=== PATIENT | female | born 1930 | race Caucasian/White ===

== ENCOUNTER 2016-10-22 08:43 | Emergency (ER) | payer MEDICARE, BC ==
[~2016-10-22 08:43] MED LIST: ALLOPURINOL300 MG PO; AMLODIPINE BESYL5 MG PO; ASPIRIN81 MG PO; AUGMENTIN PO; BUMEX1 MG PO; CEFACLOR250 MG PO; CENTRUM PO; CENTRUM SILVER PO; COMBIVENT U/D3 ML INH; CRESTOR5 MG PO; DETROL LA PO; DIOVAN HCT 160/1 TAB PO; LEVOTHYROXINE50 MCG PO; LISINOPRIL10 MG PO; LOPRESSOR PO; LYRICA PO; LYRICA75 MG PO; METOPROLOL TART25 MG PO; MUCUS RELIEF600 M1 PO; POTASSIUM CL 225 ME1 PO; SPIRONOLACTONE10 GM PO; XARELTO15 MG PO; ZAROXYLYN PO; ZYLOPRIM PO
[2016-10-22] MEDS ORDERED: ACID CONTROLLER20 MG PO (09:04)
[2016-10-22] MEDS ORDERED: LIPITOR20 MG PO (09:05)
[2016-10-22 09:42] LABS: URINE APPEARANCE SL CLOUDY; URINE BILIRUBIN NEG (NEG); URINE BLOOD TRACE-LYSED (NEG); URINE COLOR YELLOW; URINE GLUCOSE NEG (NORM); URINE KETONE NEG (NEG); URINE LEUKOCYTE ESTERASE 2+ (NEG); URINE NITRATE POS (NEG); URINE PH 6.5 (5-8); URINE PROTEIN NEG (NEG); URINE UROBILINOGEN 0.2 MG/DL (NORM)
[2016-10-22 09:43] LABS: MICRO INDICATED? YES; URINE SOURCE CLEAN CATCH
[2016-10-22 09:48] LABS: URINE BACTERIA 2+ (NEG); URINE RBC 0-2 /[HPF] (0-2); URINE SQUAMOUS EPITHELIAL CELL OCCAS /[HPF]
== END 2016-10-22 10:03 | disposition home or self-care (01) ==
LOC: SED 08:43
PROVIDERS: Emergency Medicine
DX: N39.0 Urinary tract infection, site not specified (principal); I10 Essential (primary) hypertension; Z79.899 Other long term (current) drug therapy; Z91.013 Allergy to seafood; Z88.6 Allergy status to analgesic agent; Z88.8 Allergy status to other drugs, medicaments and biological substances
CPT/HCPCS: 81003; 99283

== ENCOUNTER → 2016-10-25 | Outpatient (CLI) | payer MEDICARE, BC ==
[~2016-10-25] MED LIST changes: +ACID CONTROLLER20 MG PO; +ACID REDUCER20 MG PO; +ALDACTONE PO; +ASPIRIN81 M2 PO; +CENTRUM SILVER1 EAC2 PO; +CRESTOR PO; +GUAIFENESIN LA600 M1 PO; +IPRATR-ALBUTEROL3 ML NEB; +KCL PO; +LIPITOR20 MG PO; +LISINOPRIL PO; +NITROLINGUAL12 G1 SL; +PATIENT'S PHARMACY; +PREDNISONE PO
[2016-10-25 11:50] LABS: ALBUMIN SERUM 4.1 g/dL (3.5-5.0); BILIRUBIN,TOTAL 0.8 mg/dL (0.2-2.0); BUN/CREATININE RATIO 26.92; CALCIUM SERUM 9.1 mg/dL (8.4-10.2); CREATININE SERUM 1.3 mg/dL (0.6-1.4); GLOM FILT RATE Estimated 37.9 mL/min (>60); POTASSIUM 4.6 mmol/L (3.5-5.1); PROTEIN TOTAL SERUM 6.2 g/dL (6.0-8.3); URIC ACID 5.3 mg/dL (2.6-7.2)
[2016-10-27 23:26] LABS: CALCIUM (PTHINTACT) 9.6 mg/dL (8.6-10.4)
== END | disposition home or self-care (01) ==
LOC: CLAB 10:15
PROVIDERS: Internal Medicine Nephrology
DX: N18.3 Chronic kidney disease, stage 3 (moderate) (principal); N25.81 Secondary hyperparathyroidism of renal origin
CPT/HCPCS: 36415; 80053; 82310; 83970; 84100; 84550

== ENCOUNTER 2016-11-01 11:30 | Inpatient (IN) | payer MEDICARE, BC ==
[~2016-11-01] VITALS: Ht 162.6 cm; Wt 117.0 kg
--- NOTE | ~2016-11-01 | CO ---
Unit #: [id number] #: [id number] Patient: HEATH BAH [id number] [address] [place], [place] [address] [id number] MR#: [id number] NAME: HEATH BAH ROOM: 572 Age: 85 Sex: F Admission Date: 11/01/2016 : 1930 Attending Physician: Yesy Nugent M.D. Primary Care Physician: Latricia ePttit M.D. Consultation Date: 11/02/2016 CONSULTATION REPORT REASON FOR CONSULT Renal insufficiency. HISTORY Thank you very much for asking us to see this patient in consultation. Ms. Bah is an 85-year-old female with history of chronic kidney disease stage 3 with baseline creatinine 1.3 to 1.5 range who was in the office yesterday with increasing shortness of breath, at which time I sent her over to the emergency room where she was admitted with increased shortness of breath. Patient was in the emergency room on October 25 at [facility] with some mild increased shortness of breath and some back pain on the left side and was diagnosed with a UTI and was given nitrofurantoin. She presented to the office yesterday with worsening shortness of breath over the last week, cough (nonproductive), questionable fevers. No chest pain. No nausea, vomiting or diarrhea. No urinary symptoms. Some mild increased swelling. Patient was noted to have a creatinine of 1.7 upon admission. HER PAST MEDICAL HISTORY History of atherosclerotic coronary artery disease with valvular heart disease status post mitral valve replacement and tricuspid valve repair, history of atrial fib, history of COPD, history of pulmonary hypertension, history of hypertension, history of hyperlipidemia, history of hypothyroidism, history of chronic kidney disease stage 3, history of obesity, history of carotid artery disease. MEDICATIONS Her medications include Solu-Medrol, was started here 80 mg IV q.12. She was on Bumex 1 mg a day, and I increased her to 1 mg twice a day if she was discharged from the ER, but here she was started on 1 mg IV q.12. She is on Lyrica 150 mg a night, Lopressor 25 mg b.i.d., several inhalers, Tylenol, Lipitor now 20 mg a day. I think she was on Crestor at home. Xarelto 15 mg a day, KCl 20 mEq a day. She is on aspirin 81 mg a day, Pepcid 20 mg a day, Allopurinol 300 mg a day, Protonix now here also 40 mg a day, Synthroid 0.05 mg a day. She was on Zestril 10 mg a day and spironolactone at home, and that was then DC'd. HER REVIEW OF SYSTEMS As mentioned in the HPI. Otherwise, negative. HER SOCIAL HISTORY Previous smoker. None now. No alcohol. ALLERGIES Unit #: [id number] #: [id number] Patient: HEATH BAH Her allergies include indomethacin, piroxicam and shellfish. FAMILY HISTORY Her family history is noncontributory. HER PHYSICAL EXAM GENERAL: She is alert and oriented. VITAL SIGNS: Temperature is 98.6, pulse 58 to 78, blood pressure 109 to 151/45 to 82. HER HEENT: She is normocephalic, atraumatic. Pupils are equal, round and reactive to light. Extraocular muscles are intact. Hearing appears to be normal. Mouth is clear, no erythema, no exudate. NECK: Supple. No JVD. CARDIAC: She is without a rub. She has about a 1 to 2/6 systolic ejection murmur. LUNGS: Her lungs actually sound fairly clear today. Yesterday I had heard rhonchi in her right base. HER ABDOMEN: Overweight. Bowel sounds positive. Nontender, soft. EXTREMITIES: She does have some trace lower extremity swelling. HER : Deferred. SKIN: No acute rashes. NEURO: Alert and oriented. Able to move all extremities. DIAGNOSTIC STUDIES LABORATORY DATA: She has sodium today 134, potassium 4.8, chloride is 100, bicarb is 24, BUN of 43, creatinine 1.7, glucose 245, calcium is 9.6, magnesium is 2.1, albumin is 3.9. TSH 0.72. BNP is only 110. Her hemoglobin is 10.8, white count 9,200 with platelets 215,000. Her urinalysis shows specific gravity 1.007, nitrite negative now, no protein. She has 0-2 RBCs, 2-5 WBCs, no bacteria now. IMAGING: Chest x-ray showed cardiomegaly, probable pulmonary edema. ASSESSMENT AND PLAN 1. Chronic kidney disease stage 3 with now some mild acute kidney injury with creatinine up to 1.7. I agree with holding her Aldactone and her Zestril and agree with IV Bumex. Would continue for now. Echo of the heart is pending. Unsure if her shortness of breath is related to heart failure with the BNP only 110 but clinically she was suggestive of that. Certainly she could have some sort of underlying lung problem with COPD, as well, and she is on some IV steroids. Will check labs in the morning. Will check a renal ultrasound just to rule out any acute pathology from the renal standpoint. Certainly check full set of labs in the morning. Will continue to follow. 2. Shortness of breath. Workup and treatment per primary and cardiology. Questionable congestive heart failure versus lung disease versus other. 3. History of hypertension. Again, off STEVE inhibitors for now until renal function improves. Continue to hold ACEs and ARBs for now. 4. Cardiac disease. Thank you very much. Dictated by.Marilyn Denis M.D. Unit #: [id number] #: [id number] Patient: HEATH BAH RAMESH/pravin TD: 11/03/2016 09:12 JOB #: [id number] CONSULTATION REPORT Page 1 of 1 X Narciso Denis MD CONSULTATION REPORT
--- NOTE | ~2016-11-01 | US77 ---
[facility] A Service of [facility] RADIOLOGY TEXT RESULTS PATIENT: HEATH BAH LOCATION: [facility] 572-01 : 32 UNIT #: [id number] AGE: [address]: Yesy Nugent MD SEX: F ORDER DR: [id number] [facility] [address] [place], [place] [address] [id number] I MR#: [id number] Acc #: [id number] NAME: HEATH BAH : 1930 SEX: F STUDY DATE/TIME: 11/02/2016 16:05 UNIT: [facility] ROOM: [facility] STUDY DESCRIPTION: US Kidney Bilateral Complete Attending Physician: Yesy Nugent M.D. Ordering Physician: Armando Denis M.D. Primary Care Physician: Latricia Pettit M.D. MEDICAL IMAGING REPORT This report is preliminary unless electronic signature is present EXAM Renal sonogram. CLINICAL HISTORY 85-year-old female with stage 3 chronic kidney disease. Acute on chronic kidney injury. FINDINGS Real-time examination demonstrates the kidneys to be of normal size with the right kidney measuring 12.1 cm in length, the left kidney 12 cm in length. No hydronephrosis. Central echo complex appears normal. There is mild thinning of the renal cortex of the right kidney, particularly in the lower pole. Bladder unremarkable. IMPRESSION Mild right renal cortical atrophy, otherwise normal bilateral renal sonogram. Dictated by... Grey Cortés M.D. THIS IS AN ELECTRONICALLY VERIFIED REPORT Grey Cortés M.D. at 11/03/2016 6:54 PM VALERIE/anson TD: 11/02/2016 22:27 JOB #: [id number] MEDICAL IMAGING REPORT Page 1 of 1 COPY
--- NOTE | ~2016-11-01 | CO ---
Unit #: [id number] #: [id number] Patient: HEATH BAH [id number] [address] [place], [place] [address] [id number] I MR#: [id number] NAME: HEATH BAH ROOM: 572 Age: 85 Sex: F Admission Date: 11/01/2016 : 1930 Attending Physician: Yesy Nugent M.D. Primary Care Physician: Latricia Pettit M.D. Consultation Date: 11/01/2016 CONSULTATION REPORT REASON FOR CONSULT CHF. HISTORY OF PRESENT ILLNESS This is a pleasant 85-year-old, female, who typically is followed by Dr. Cathy Almanza. She has a past medical history of coronary artery disease with stent placement to the left circ, mitral valve replacement with a porcine mitral valve and tricuspid repair at [facility] in 2009, hypertension, hyperlipidemia, paroxysmal atrial fibrillation, on chronic anticoagulation with Xarelto, hypothyroidism, CKD, CARMEN, bilateral carotid stenosis, bronchiectasis and reformed tobacco use. The patient tells me she has been in her typical state of health, but noticed on Sunday, she started not feeling very well with some shortness of breath. She states she was doing her breathing treatments at home, but they just were not helping much. She denies any fever, but does report some occasional chills as well as occasional productive cough. Denies any recent sick contacts. She denies any complaints of chest pain or angina, does report some orthopnea, but denies any PND. She does tell me she has been eating a lot of frozen foods over the last week, but no increase in her fluid intake. The patient also reports she has recently been treated for UTI approximately 2 weeks ago and has finished her antibiotic regimen. She denies any complaints of palpitations. The patient states she just dealt with her breathing issue as she knew she had an appointment with Dr. Denis the following day. She went in to see him. He felt like she needed to come to the emergency room for further evaluation. Therefore, the patient presented for the above. In the ER, her blood pressure was in the 140s/50s, oxygen saturation was 92%, pulse was 77. Chest x-ray was performed, which showed mild cardiomegaly and was suggestive of edema. Her BNP was mildly elevated at 110. She was given 1 mg of Bumex in the emergency department. She also had an EKG performed, which showed normal sinus rhythm, rate of 73 beats per minute. No acute ischemic change. QTc interval of 458 msec. Point of care troponin was less than 0.05. It is also notable that on admission, her creatinine was noted to be elevated at 1.7 and a potassium of 5.0. At present, she is resting in bed. She does appear slightly labored with conversation, but is in no acute distress. We were evaluating for the above reasons. PAST MEDICAL HISTORY 1. Coronary artery disease with a history of stent to the left circumflex. 2. Left heart catheterization in 10/2013 showed the left circumflex was patent. No other coronary artery disease was noted. Normal LVEF of 65%. 3. 2D echocardiogram in 2014 showed LVEF of 55% to 60%, grade 2 diastolic Unit #: [id number] #: [id number] Patient: HEATH BAH R dysfunction, severe mitral calcification, mild MR, MVR tissue with peak gradient of 11/3, an area of 2.3 cm2, moderate TR and RVSP of 37 mmHg. 4. Moderate to severe pulmonary hypertension. 5. Hypertension. 6. Hyperlipidemia. 7. Hypothyroidism. 8. Chronic kidney disease, followed by Dr. Denis. 9. Obstructive sleep apnea, on CPAP. 10. Peripheral arterial disease with a history of bilateral carotid artery stenosis. 11. Paroxysmal atrial fibrillation, on chronic anticoagulation with Xarelto. 12. COPD. 13. Chronic respiratory failure, wears oxygen at night. PAST SURGICAL HISTORY 1. Cardiac cath. 2. Cardiac stent placement to the left circumflex. 3. Mitral valve replacement with a porcine mitral valve and tricuspid repair in [address] [facility]. 4. Hysterectomy. 5. Right breast lumpectomy. 6. Oophorectomy. 7. Hemorrhoidectomy. 8. Back surgery. 9. Carpal tunnel release. SOCIAL HISTORY The patient lives with her . She is a reformed tobacco user, quit about 20 years ago. She reports occasional alcohol. Denies illicit drug use. ALLERGIES Shellfish, indomethacin, piroxicam, and clotrimazole. MEDICATIONS Bumex 1 mg p.o. b.i.d., allopurinol 300 mg p.o. daily, Lopressor 25 mg p.o. b.i.d., famotidine 20 mg p.o. daily, levothyroxine 50 mcg p.o. daily, aspirin 81 mg p.o. daily, multivitamin one tab p.o. daily, Klor-Con 20 mEq p.o. daily, Lyrica 150 mg p.o. q.h.s., Xarelto 15 mg p.o. q.h.s., Zestril 10 mg q.h.s., Lipitor 20 mg p.o. daily, nitroglycerin sublingual as needed, Albuterol/Atrovent mini nebs as needed, cefaclor 250 mg p.o. q.8 hours, guaifenesin 600 mg p.o. b.i.d., Aldactone 12.5 mg p.o. daily. REVIEW OF SYSTEMS Complete and is negative except for as stated above in the HPI. DIAGNOSTIC STUDIES LABORATORY RESULTS: Troponin less than 0.05. Hemoglobin 10.8, hematocrit 31.3, WBCs 10.8. Comp panel; sodium was 133, BUN 39, creatinine 1.7, BNP is 110. Urinalysis is notable for trace leuk esterase. IMAGING STUDIES: Chest x-ray with mild cardiomegaly and interstitial change suggestive of ischemia. EKG shows normal sinus rhythm, rate of 73 beats per minute. No acute ischemic change. QTc interval of 458 msec. Unit #: [id number] #: [id number] Patient: HEATH BAH PHYSICAL EXAMINATION GENERAL: This is a pleasant, obese, female, in no acute distress. VITAL SIGNS: Temperature 98, respiratory rate 18 to 20, pulse 75, blood pressure 110/82 to 141/54, BMI is 45. HEENT: Head is atraumatic and normocephalic. Mucous membranes are moist. NECK: Supple. Trachea is midline. No lymphadenopathy. No thyromegaly. Carotid bruits auscultated in the right carotid artery. CARDIOVASCULAR: S1, S2. No murmurs, gallops, or rubs. Regular rate and rhythm. LUNGS: Clear to auscultation, diminished in the bases. ABDOMEN: Obese soft, nontender, nondistended. Bowel sounds are present. EXTREMITIES: 1+ edema as noted. NEUROLOGIC: The patient is awake, alert, and oriented. She follows commands. She moves extremities equally. IMPRESSION 1. Acute on chronic diastolic heart failure. 2. Chronic obstructive pulmonary disease exacerbation. 3. Chronic respiratory failure, wears oxygen at night. 4. Obstructive sleep apnea, compliant with continuous positive airway pressure. 5. Paroxysmal atrial fibrillation, currently rates are controlled on chronic anticoagulation with Xarelto. 6. Valvular heart disease, status post MVR porcine valve and tricuspid repair at [facility] in 2009. 7. Pulmonary hypertension. 8. Hyperlipidemia. 9. Hypothyroidism. 10. Chronic kidney disease, followed by Dr. Denis. Admitting creatinine is 2.8. 11. Chronic anemia. 12. Morbid obesity with BMI of 45. We have been asked to see the patient secondary to congestive heart failure. This patient typically follows with Dr. Cathy Almanza and appears she is in acute on chronic diastolic heart failure. The patient is noted to be also in acute on chronic kidney disease with a creatinine currently of 2.8. At this time, we will continue with fluid restriction and 2 g sodium diet. Strict Is and Os and daily weights. Her initial troponin has been negative, we will trend that out and repeat EKG in the a.m. we will check BMP, CBC, magnesium and TSH in the a.m. At this time due to her altered kidney function, we will discontinue her Aldactone and her STEVE inhibitor and she will be continued on 1 mg of IV Bumex daily for fluid removal with close monitoring of her renal function. We will also ask Dr. Denis to see her in consultation. Dictated by... Margot Diaz A.P.R.N. LMW/modl TD: 11/02/2016 23:27 JOB #: [id number] Unit #: [id number] #: [id number] Patient: POLI BAHALEENA Albarran CONSULTATION REPORT Page 1 of 1 X Margot Diaz APRN CONSULTATION REPORT
--- NOTE | ~2016-11-01 | EKG ---
PATIENT: HEATH BAH UNIT #: [id number] Ventricular Rate: 62 BPM Atrial Rate: 62 BPM P-R Interval: 162 ms QRS Duration: 90 ms Q-T Interval: 460 ms QTC Calculation(Bezet): 466 ms P [place]: 98 degrees Calculated R [place]: 68 degrees Calculated T [place]: 96 degrees Diagnosis Line: Normal sinus rhythm with sinus arrhythmia Diagnosis Line: Normal ECG Diagnosis Line: When compared with ECG of 01-NOV-2016 12:11, Diagnosis Line: No significant change was found Diagnosis Line: Confirmed by GRACE JOHNSON MD ([id number]) on Diagnosis Line: 11/03/2016 4:35:13 PM INTERPRETING MD: ZENAIDA
--- NOTE | ~2016-11-01 | DS ---
Unit #: [id number] #: [id number] Patient: HEATH BAH [id number] [address] [address] [id number] I MR#: [id number] NAME: HEATH BAH ROOM: 572 Age: 85 Sex: F Admission Date: 11/01/2016 : 1930 Discharge Date: Attending Physician: Yesy Nugent M.D. Primary Care Physician: Latricia Pettit M.D. DISCHARGE SUMMARY DISCHARGE DIAGNOSES 1. Acute on chronic diastolic heart failure. 2. Acute kidney injury. 3. Chronic kidney disease, stage 3. 4. Atrial fibrillation, paroxysmal, on Xarelto. 5. Coronary artery disease. 6. History of porcine mitral valve replacement and tricuspid replacement in 2009. 7. Chronic obstructive pulmonary disease with exacerbation. 8. Bronchiectasis. 9. Pulmonary hypertension. 10. Morbid obesity. 11. Moderate to severe pulmonary hypertension. 12. Hypertension. 13. Hyperlipidemia. 14. Hypothyroidism. 15. Obstructive sleep apnea, on CPAP. 16. Chronic hypoxic respiratory failure. 17. Peripheral arterial disease with bilateral carotid artery stenosis. CONSULTATION 1. Dr. Denis. 2. Dr. Arrington. PROCEDURES None. LAB DATA BMI of 44, BNP 156, sodium 134, potassium 4.5, creatinine 1.5, WBC 14.4, hemoglobin 10.4, platelets 224. Ultrasound of the kidneys - mild right renal cortical atrophy, otherwise normal. TSH 0.72. ALLERGIES Indomethacin, piroxicam, clotrimazole. DISCHARGE MEDICATIONS 1. Duo-Nebs nebulizer inhalation 4x daily p.r.n. shortness of breath. 2. Xarelto 15 mg at bedtime. 3. Lyrica 150 p.o. daily. 4. Lopressor 25 p.o. b.i.d. Unit #: [id number] #: [id number] Patient: HEATH BAH 5. Bumex 1 mg p.o. b.i.d. 6. Guaifenesin 600 p.o. b.i.d. 7. Lipitor 20 daily. 8. Pepcid 20 mg p.o. daily. 9. Allopurinol 300 daily. 10. Multivitamin, one tablet daily. 11. Aspirin 81 daily. 12. Levothyroxine 50 mcg p.o. daily. 13. Nitroglycerin sublingual p.r.n. chest pain. HOSPITALIZATION COURSE This is 85-year-old with history of COPD, chronic hypoxic respiratory failure, admitted because of shortness of breath. 1. Acute on chronic diastolic heart failure. Patient received IV Bumex, currently compensated. Lungs clear. She does have pedal edema. Continue p.o. Bumex. 2. Acute kidney injury with chronic kidney disease stage 3 and mildly elevated creatinine on admission, currently stable. Likely from CHF. 3. COPD with exacerbation, started on IV Solu-Medrol. Currently, no wheezing. Patient will continue with Duo-Nebs and prednisone tapering dose. 4. Paroxysmal atrial fibrillation, on Xarelto, rate controlled. 5. Chronic anemia, likely iron deficiency. 6. Morbid obesity. The patient will be discharged home. Follow with primary physician in one week time. Follow with cardiology in four weeks time. Follow with Dr. Denis in one to two weeks time. Dr. Denis and Dr. Arrington is okay for the patient to be discharged. Echocardiogram shows ejection fraction 55-60%. Moderately dilated left atrium, moderately enlarged right atrium, moderately dilated right ventricle and mild to moderate pulmonary valvular regurgitation. Right ventricular systolic pressure is 40. Small pericardial effusion present. Discharge time taken is 31 minutes. Dictated by... Velma Hall TD: 11/03/2016 12:35 JOB #: [id number] DISCHARGE SUMMARY Page 1 of 1 X Yesy Nugent MD X DISCHARGE SUMMARY
--- NOTE | ~2016-11-01 | HP ---
Unit #: [id number] #: [id number] Patient: HEATH BAH [id number] [address] [address] [id number] MR#: [id number] NAME: HEATH BAH ROOM: 92155 Age: 85 Sex: F Admission Date: 11/01/2016 : 1930 Attending Physician: Concepcion Parisi M.D. Primary Care Physician: Latricia Pettit M.D. HISTORY AND PHYSICAL CHIEF COMPLAINT Short of air. HISTORY OF PRESENT ILLNESS The patient is an 85-year-old female with past medical history of CHF, COPD, chronic respiratory failure, paroxysmal atrial fibrillation, chronic anticoagulation, valvular heart disease, pulmonary hypertension, hypertension, hyperlipidemia, hypothyroidism, chronic kidney disease, chronic anemia, peripheral arterial disease, obstructive sleep apnea who presented to the emergency department from the plating foreman[facility] office for evaluation of the above. The patient states that she has not been feeling well since October 30, 2016. She states that she has had increasing shortness of breath and occasionally productive cough. She reports chills but no documented fever. She denies any chest pain. She has two-pillow orthopnea that is not a new problem. She denies any paroxysmal nocturnal dyspnea. She does have dyspnea on exertion when walking across the room. She states that she has gained about 2 pounds over the past couple of days. She states that she has been taking her medications as prescribed. In the emergency department, initial pulse and blood pressure were 77 and 141 over 54 respectively. Oxygen saturation was 92% on room air. Chest x-ray shows mild cardiomegaly with interstitial change suggestive of edema. BNP is 110. She was given 1 mg of Bumex in the emergency department. She is being admitted to [facility] for evaluation and further treatment. PAST MEDICAL HISTORY 1. Admission to [facility] July 08 through July 11, 2014, for CHF exacerbation. 2. Xpehxbvc-jp-cnjexy pulmonary artery hypertension. 3. 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 4. Coronary artery disease, status post angioplasty and stent placement followed by Dr. Almanza. 5. Hypertension. 6. Hyperlipidemia. 7. Hypothyroidism. 8. Chronic kidney disease, followed by Dr. Denis. 9. Obstructive sleep apnea on CPAP. 10. Peripheral arterial disease with bilateral carotid artery stenosis. 11. Paroxysmal atrial fibrillation on chronic anticoagulation with Xarelto. Unit #: [id number] #: [id number] Patient: HEATH BAH 12. COPD. 13. Chronic respiratory failure on 5 L of oxygen at night. 14. Echocardiogram, October 23, 2009, showed an ejection fraction greater than 55% with right ventricular systolic pressure elevated at 30-40 mmHg. PAST SURGICAL HISTORY 1. Cardiac catheterization. 2. Cardiac stent placement. 3. Mitral valve replacement with Porcine mitral valve and tricuspid repair. 4. Hysterectomy. 5. Right breast lumpectomy. 6. Oophorectomy. 7. Hemorrhoidectomy. 8. Back surgery. 9. Left ankle surgery. 10. Cataract extraction. 11. Carpal tunnel release. SOCIAL HISTORY The patient lives with her . She quit smoking. She typically walks without assistance. Her code status is a full code. FAMILY HISTORY Notable for both parents having malignancy. ALLERGIES Shellfish, indomethacin, piroxicam, clotrimazole. HOME MEDICATIONS 1. Bumex 1 mg twice daily. 2. Allopurinol 300 mg daily. 3. Lopressor 25 mg twice daily. 4. Famotidine 20 mg daily. 5. Levothyroxine 50 mcg daily. 6. Aspirin 81 mg daily. 7. Multivitamin daily. 8. Potassium 20 mEq daily. 9. Lyrica 150 mg at bedtime. 10. Xarelto 15 mg at bedtime. 11. Zestril 10 mg at bedtime. 12. Lipitor 20 mg daily. 13. Nitroglycerin p.r.n. 14. Ipratropium albuterol four times daily p.r.n. 15. Cefaclor 250 mg q.8 hours. 16. Guaifenesin 600 mg twice daily. 17. Aldactone 12.5 mg daily. REVIEW OF SYSTEMS A complete review of systems is negative except as indicated in the HPI. The patient states that she was treated for a urinary tract infection about two weeks ago with Macrobid. DIAGNOSTIC STUDIES LABORATORY: Complete blood count notable for white blood cell count of 10.8, hemoglobin and hematocrit 10.8 and 31.3 respectively. Troponin is less than 0.05. Comprehensive metabolic panel notable for sodium of 133, Unit #: [id number] #: [id number] Patient: HEATH BAH R chloride 99, BUN and creatinine 39 and 1.7 respectively. BNP is 110. Urinalysis notable for trace leukocyte esterase. IMAGING: Chest x-ray shows mild cardiomegaly with interstitial change suggestive of edema. CARDIOVASCULAR: EKG shows normal sinus rhythm with a rate of 73 beats per minute. PHYSICAL EXAMINATION VITAL SIGNS: Temperature is 98, pulse 77, respirations 15, blood pressure 141/54, oxygen saturation 92% on room air. GENERAL: The patient is a female, who is awake and alert in no acute distress. HEENT: The head is atraumatic. Mucous membranes are moist. NECK: Supple. Trachea is midline. CARDIOVASCULAR: Regular rate and rhythm. LUNGS: Demonstrate decreased breath sounds at the bases. Breathing is mildly labored with conversation. ABDOMEN: Soft, nontender with bowel sounds present in all four quadrants. EXTREMITIES: Show 1 to 2+ edema. NEUROLOGIC: The patient is awake and alert. She follows commands. PSYCHIATRIC: Mood and affect are normal. The patient is cooperative. SKIN: Skin of examined areas is warm and dry. ASSESSMENT The patient is an 85-year-old female with: 1. Congestive heart failure exacerbation: The patient received 1 mg of Bumex in the emergency department. 2. Chronic obstructive pulmonary disease. 3. Chronic respiratory failure on 5 L of oxygen at night with CPAP. 4. Paroxysmal atrial fibrillation on chronic anticoagulation with Xarelto. 5. Valvular heart disease, status post Porcine mitral valve and tricuspid repair. 6. Pulmonary hypertension. 7. Hypertension. 8. Hyperlipidemia. 9. Hypothyroidism. 10. Chronic kidney disease, followed by Dr. Denis. 11. Chronic anemia: The patient's hemoglobin was 13.2, July 08, 2014. It is 10.8 today. 12. Peripheral arterial disease with bilateral carotid artery stenosis. 13. Obstructive sleep apnea on CPAP. 14. Former smoker. 15. Morbid obesity with a BMI of 45. PLAN 1. Admit to intermediate level. 2. A 2 g sodium 1800 mL fluid restricted heart healthy diet. 3. Strict I's and O's. 4. Daily weights. 5. Serial cardiac enzymes. 6. TSH. 7. Bumex 1 mg IV q.12 hours. 8. A 2D echo if not done within the past year. 9. Consult Dr. Claire regarding CHF. 10. Supplemental oxygen. Unit #: [id number] #: [id number] Patient: HEATH BAH 11. P.r.nMark Addis. 12. Solu-Medrol 80 mg IV q.12 hours. 13. CPAP at home settings. 14. Repeat labs in the morning. 15. Additional workup and consultants based on above. 16. Protonix for GI prophylaxis since the patient will be on Solu-Medrol. Dictated by Velma Mari TD: 11/01/2016 15:20 JOB #: [id number] HISTORY AND PHYSICAL Page 1 of 1 X Concepcion Parisi MD X HISTORY AND PHYSICAL
--- NOTE | ~2016-11-01 | EKG ---
PATIENT: HEATH BAH UNIT #: [id number] Ventricular Rate: 73 BPM Atrial Rate: 73 BPM P-R Interval: 156 ms QRS Duration: 90 ms Q-T Interval: 416 ms QTC Calculation(Bezet): 458 ms P [place]: 89 degrees Calculated R [place]: 49 degrees Calculated T [place]: 85 degrees Diagnosis Line: Normal sinus rhythm Diagnosis Line: Normal ECG Diagnosis Line: When compared with ECG of 09-JUL-2014 05:59, Diagnosis Line: No significant change was found Diagnosis Line: Confirmed by CHHAYA HORTON MD ([id number]) on 11/01/2016 Diagnosis Line: 7:25:48 PM INTERPRETING MD: CLIFFORD DOMÍNGUEZ
--- NOTE | ~2016-11-01 | BMI ---
[facility] Nutrition Therapy DATE: 11/03/16 Patient: HEATH Avis BAH Physician: LAURA Address: [address] [place] [address] Room/Bed: [address] [place] [address], Zip: [place] [address] Admit Date: 11/01/16 Date of : [birth year] Height: 5 4 Weight: 257 117 HIGH BMI NOTE: ANTHROPOMETRICS: HT: 64" WT: 117 KG BMI: 44.3 DIET: 2 GRAM NA+/ FLUID RESTRICTION PER MD RECOMMENDATIONS: 1. ADD A HEART HEALTHY DIET RESTRICTION TO PROMOTE GRADUAL WEIGHT LOSS TOWARDS A HEALTHY BMI RANGE. Respectfully, SIOBHAN GALVAN RD, LD [facility] cc: client file
--- NOTE | ~2016-11-01 | CR72 ---
[facility] A Service of [facility] RADIOLOGY TEXT RESULTS PATIENT: HEATH BAH LOCATION: [facility] 572-01 : 32 UNIT #: [id number] AGE: [address]: Yesy Nugent MD SEX: F ORDER DR: [id number] [facility] [address] [place], [place] [address] [id number] MR#: [id number] Acc #: [id number] NAME: HEATH BAH : 1930 SEX: F STUDY DATE/TIME: 11/01/2016 12:19 UNIT: [facility] ROOM: [facility] STUDY DESCRIPTION: CR Chest Single View Portable Attending Physician: Concepcion Parisi M.D. Ordering Physician: Candido Andrew M.D. Primary Care Physician: Latricia Pettit M.D. MEDICAL IMAGING REPORT This report is preliminary unless electronic signature is present EXAM Chest portable 11/01/2016 1219 hours. HISTORY 85-year-old woman with shortness of air for 3 days. History of hypertension, sleep apnea. COMPARISON 07/10/2014 FINDINGS Upright portable chest demonstrates median sternotomy change with mild cardiomegaly and a tortuous aorta. There is pulmonary venous distension and coarse bilateral interstitial changes diffusely, most consistent with edema. No definite effusion. Stable calcified granulomatous changes. IMPRESSION Median sternotomy change with mild cardiomegaly increased from 07/10/2014. There is coarse bilateral interstitial change most consistent with pulmonary edema. No effusions seen. STAT * RESULT Dictated by... Virginia Hancock M.D. THIS IS AN ELECTRONICALLY VERIFIED REPORT Virginia Hancock M.D. at 11/02/2016 9:03 AM MASSIEL/elton TD: 11/01/2016 12:55 [facility] A Service of [facility] RADIOLOGY TEXT RESULTS PATIENT: HEATH BAH LOCATION: [place] [id number] : 32 UNIT #: [id number] AGE: [address]: Yesy Nugent MD SEX: F ORDER DR: JOB #: [id number] MEDICAL IMAGING REPORT Page 1 of 1 COPY
[~2016-11-01 11:30] MED LIST changes: -ACID REDUCER20 MG PO; -ALDACTONE PO; -ASPIRIN81 M2 PO; -CENTRUM SILVER1 EAC2 PO; -CRESTOR PO; -GUAIFENESIN LA600 M1 PO; -IPRATR-ALBUTEROL3 ML NEB; -KCL PO; -LISINOPRIL PO; -NITROLINGUAL12 G1 SL; -PATIENT'S PHARMACY; -PREDNISONE PO
[2016-11-01 12:24] LABS: BASOPHIL% 0.2 % (0-2.5); EOSINOPHIL# 1.2 X10e3 (0-0.7); EOSINOPHIL% 10.7 % (0.0-7.0); HEMATOCRIT 31.3 % (35.0-45.0); HEMOGLOBIN 10.8 gm/dL (12.0-16.0); LYMPHOCYTE# 1.1 X10e3 (1.0-3.5); LYMPHOCYTE% 10.2 % (17.0-45.0); MEAN CELL VOLUME 94.7 FL (83-96); MEAN CORPUSCULAR HEMOGLOBIN 32.6 PG (28-34); MEAN CORPUSCULAR HGB CONC 34.5 g/dL (30-36); MEAN PLATELET VOLUME 8.1 FL (6.5-11.5); MONOCYTE# 0.6 X10e3 (0-1.0); NEUTROPHIL# 7.9 X10e3 (1.5-7.1); NEUTROPHIL% 72.9 % (40-75); PLATELET COUNT 186 X10e3 (140-420); RED BLOOD COUNT 3.31 X10e (3.90-5.30); RED CELL DISTRIBUTION WIDTH 14.6 % (11.0-15.5); WHITE BLOOD COUNT 10.8 X10e3 (4.0-10.5)
[2016-11-01 12:25] LABS: DIFF IND NO
[2016-11-01 12:39] LABS: POC - CKMB 4.2 ng/mL (0.0-7.9); POC - TROPONIN <0.05 ng/mL (<=0.05)
[2016-11-01 12:49] LABS: ALBUMIN SERUM 4.2 g/dL (3.5-5.0); BILIRUBIN, DIRECT 0.2 mg/dL (0.0-0.2); BILIRUBIN,INDIRECT 0.8 mg/dL (0.0-0.9); BUN/CREATININE RATIO 22.94; CALCIUM SERUM 9.3 mg/dL (8.4-10.2); CREATININE SERUM 1.7 mg/dL (0.6-1.4); GLOM FILT RATE Estimated 27.4 mL/min (>60); PROTEIN TOTAL SERUM 7.1 g/dL (6.0-8.3)
[2016-11-01 13:10] LABS: URINE SOURCE CLEAN CATCH
[2016-11-01 13:18] LABS: URINE APPEARANCE CLEAR; URINE BILIRUBIN NEG (NEG); URINE BLOOD NEG (NEG); URINE COLOR YELLOW; URINE GLUCOSE NEG (NEG); URINE KETONE NEG (NEG); URINE LEUKOCYTE ESTERASE TRACE (NEG); URINE NITRATE NEG (NEG); URINE PROTEIN NEG (NEG); URINE SPECIFIC GRAVITY 1.007 (1.003-1.035); URINE UROBILINOGEN 0.2 MG/DL (NEG)
[2016-11-01 13:20] LABS: URBCS1 AUWI 0-2 /[HPF] (0-2); URINE BACTERIA AUWI NEG (NEGATIVE); URINE SQUAMOUS EPITHELIAL CELL NONE SEEN /[HPF]
[2016-11-01 13:21] LABS: CULTURE INDICATED? NO
[2016-11-01] MEDS ORDERED: BUMEX1 MG PO (14:07)
[2016-11-01] MEDS ORDERED: PATIENT'S PHARMACY (14:07)
[2016-11-01] MEDS ORDERED: ACID REDUCER20 MG PO (14:08)
[2016-11-01] MEDS ORDERED: LEVOTHYROXINE50 MCG PO (14:08)
[2016-11-01] MEDS ORDERED: LOPRESSOR PO (14:08)
[2016-11-01] MEDS ORDERED: KCL PO (14:08)
[2016-11-01] MEDS ORDERED: ALLOPURINOL300 MG PO (14:08)
[2016-11-01] MEDS ORDERED: ASPIRIN81 M2 PO (14:08)
[2016-11-01] MEDS ORDERED: CENTRUM SILVER1 EAC2 PO (14:08)
[2016-11-01] MEDS ORDERED: LISINOPRIL PO (14:09)
[2016-11-01] MEDS ORDERED: XARELTO15 MG PO (14:09)
[2016-11-01] MEDS ORDERED: LYRICA PO (14:09)
[2016-11-01] MEDS ORDERED: LIPITOR20 MG PO (14:10)
[2016-11-01] MEDS ORDERED: IPRATR-ALBUTEROL3 ML NEB (14:10)
[2016-11-01] MEDS ORDERED: NITROLINGUAL12 G1 SL (14:10)
[2016-11-01] MEDS ORDERED: CEFACLOR250 MG PO (14:10)
[2016-11-01] MEDS ORDERED: CRESTOR PO (14:11)
[2016-11-01] MEDS ORDERED: ALDACTONE PO (14:11)
[2016-11-01] MEDS ORDERED: GUAIFENESIN LA600 M1 PO (14:11)
[2016-11-01 14:25] LABS: POC - CKMB 3.7 ng/mL (0.0-7.9); POC - TROPONIN <0.05 ng/mL (<=0.05)
[2016-11-01 21:00] LABS: %MB 2.6 % (0.0-4.0); MB 3.6 ng/ml
[2016-11-02 01:54] LABS: BASOPHIL% 0.1 % (0-2.5); DIFF IND NO; EOSINOPHIL# 0.2 X10e3 (0-0.7); HEMATOCRIT 32.5 % (35.0-45.0); HEMOGLOBIN 10.8 gm/dL (12.0-16.0); LYMPHOCYTE# 0.7 X10e3 (1.0-3.5); LYMPHOCYTE% 8.1 % (17.0-45.0); MEAN CELL VOLUME 95.2 FL (83-96); MEAN CORPUSCULAR HEMOGLOBIN 31.7 PG (28-34); MEAN CORPUSCULAR HGB CONC 33.3 g/dL (30-36); MONOCYTE# 0.1 X10e3 (0-1.0); NEUTROPHIL# 8.2 X10e3 (1.5-7.1); NEUTROPHIL% 88.8 % (40-75); PLATELET COUNT 215 X10e3 (140-420); RED BLOOD COUNT 3.42 X10e (3.90-5.30); RED CELL DISTRIBUTION WIDTH 14.4 % (11.0-15.5); WHITE BLOOD COUNT 9.2 X10e3 (4.0-10.5)
[2016-11-02 02:17] LABS: INR 1.4; PROTHROMBIN TIME (PATIENT) 15.4 SECONDS (10.0-11.7)
[2016-11-02 02:44] LABS: ALBUMIN SERUM 3.9 g/dL (3.5-5.0); BILIRUBIN,TOTAL 0.6 mg/dL (0.2-2.0); BUN/CREATININE RATIO 25.29; CALCIUM SERUM 9.6 mg/dL (8.4-10.2); CREATININE SERUM 1.7 mg/dL (0.6-1.4); GLOM FILT RATE Estimated 27.4 mL/min (>60); MAGNESIUM 2.1 mg/dL (1.6-3.0); POTASSIUM 4.8 mmol/L (3.5-5.1); PROTEIN TOTAL SERUM 7.1 g/dL (6.0-8.3)
[2016-11-02 02:47] LABS: %MB 2.9 % (0.0-4.0); MB 3.3 ng/ml
[2016-11-03 07:51] LABS: HEMATOCRIT 31.5 % (35.0-45.0); HEMOGLOBIN 10.4 gm/dL (12.0-16.0); MEAN CELL VOLUME 95.1 FL (83-96); MEAN CORPUSCULAR HEMOGLOBIN 31.6 PG (28-34); MEAN CORPUSCULAR HGB CONC 33.2 g/dL (30-36); MEAN PLATELET VOLUME 8.2 FL (6.5-11.5); RED BLOOD COUNT 3.31 X10e (3.90-5.30); RED CELL DISTRIBUTION WIDTH 14.5 % (11.0-15.5)
[2016-11-03 08:00] LABS: WHITE BLOOD COUNT 14.4 X10e3 (4.0-10.5)
[2016-11-03 08:22] LABS: BUN/CREATININE RATIO 35.33; CALCIUM SERUM 9.1 mg/dL (8.4-10.2); CREATININE SERUM 1.5 mg/dL (0.6-1.4); GLOM FILT RATE Estimated 31.9 mL/min (>60); MAGNESIUM 2.3 mg/dL (1.6-3.0); PHOSPHOROUS 4.3 mg/dL (2.5-4.6); POTASSIUM 4.5 mmol/L (3.5-5.1)
[2016-11-03] MEDS ORDERED: PREDNISONE PO (12:22)
== END 2016-11-03 14:26 | disposition home or self-care (01) | DRG 291 ==
LOC: CED 11:30 → CEDOF 14:50 → CED 15:14 → C5C 18:27 → CEDOF 18:27 → C5C 11-02 08:17
PROVIDERS: Emergency Medicine; Family Medicine; Internal Medicine; Internal Medicine Cardiovascular Disease
DX: I13.0 Hypertensive heart and chronic kidney disease with heart failure and stage 1 through stage 4 chronic kidney disease, or unspecified chronic kidney disease (principal); I50.33 Acute on chronic diastolic (congestive) heart failure; N17.9 Acute kidney failure, unspecified; J96.10 Chronic respiratory failure, unspecified whether with hypoxia or hypercapnia; I27.2 Other secondary pulmonary hypertension; Z68.42 Body mass index [BMI] 45.0-49.9, adult; J44.1 Chronic obstructive pulmonary disease with (acute) exacerbation; E66.01 Morbid (severe) obesity due to excess calories; I48.0 Paroxysmal atrial fibrillation; E78.5 Hyperlipidemia, unspecified; E03.9 Hypothyroidism, unspecified; D64.9 Anemia, unspecified; G47.33 Obstructive sleep apnea (adult) (pediatric); I25.10 Atherosclerotic heart disease of native coronary artery without angina pectoris; Z95.5 Presence of coronary angioplasty implant and graft; Z90.710 Acquired absence of both cervix and uterus; Z95.4 Presence of other heart-valve replacement; Z88.8 Allergy status to other drugs, medicaments and biological substances; Z79.01 Long term (current) use of anticoagulants; N18.3 Chronic kidney disease, stage 3 (moderate)
CPT/HCPCS: 36415; 71010; 76770; 80048; 80053; 80076; 81003; 82550; 82553; 83735; 83880; 84100; 84300; 84443; 84484; 85025; 85027; 85610; 87086; 89190; 93005; 93306; 94640; 94760; 96374; 97161; 97166; 97535; 99285; G8978-GP; G8979-GP; G8980-GP; G8987-GO; G8988-GO; G8989-GO; J2920; J2930